=== PATIENT | male | born 1960 | race Caucasian/White ===

== ENCOUNTER → 2022-08-06 | Outpatient (CLI) | payer OTHER ==
--- NOTE | 2022-08-06 09:40 | CT ---
EXAMINATION TYPE: CT chest w con DATE OF EXAM: 08/06/2022 COMPARISON: None HISTORY: Lt side supraclavicular swelling (marked with BB CT DLP: 257.3 mGycm, Automated exposure control for dose reduction was used. CONTRAST: Performed injected with 70 mL of Isovue 300. TECHNIQUE: Axial images were obtained at 5 mm thick sections. Reconstructed images are reviewed on t computer in the coronal plane. FINDINGS: Portion of the thyroid visualized is normal. No suspicious lung nodules or focal infiltrates are present. Some mild emphysematous changes are in t he upper lung little. No enlarged mediastinal or hilar adenopathy is evident. A BB lomeli a left palpable area and supracl avicular/left neck region. No underlying mass is evident at this level. No suspicious supraclavicular adenopathy is identified. No retrocrural or upper abdominal adenopathy is evident. The ascending aorta diameter at the level of the main pulmonary artery is 3.0 cm. The main pulmonary artery diameter at the bifurcation is 2.[address] sections are obtained through the upper abdomen. Abdomen is essentially unremarkable. IMPRESSIONS: 1. No suspicious acute changes CT chest. 2. No suspicious adenopathy including level marked by the BB at the edge of the field of view. Contra st CT soft tissue neck could be performed if additional evaluation would be of benefit.
== END | disposition home or self-care (01) ==
LOC: RADCTMAIN 08:08
PROVIDERS: ATTEND Family Medicine
DX: R59.0 Localized enlarged lymph nodes (principal)
CPT/HCPCS: 71260; Q9967